=== PATIENT | female | born 1985 | race African-American/Black ===

== ENCOUNTER 2020-09-01 17:38 | Emergency (ER) | payer MEDICAID ==
[2020-09-01] MEDS ORDERED: Sodium Chloride 0.9% 10 ML Syringe FLUSH PRN (17:49)
[2020-09-01] MEDS ORDERED: Lactated Ringers 1,000 ML IV ONE (17:49)
[2020-09-01] MEDS ORDERED: Sodium Chloride 0.9% 2.5 ML Syringe FLUSH PRN (17:49)
--- NOTE | 2020-09-01 17:54 | EDM.PDOC ---
<Lux Curiel - Last Filed: 09/01/20 18:41> ED HPI GENERAL MEDICAL PROBLEM - General Chief Complaint: Chest Pain Stated Complaint: CHEST PAIN Time Seen by Provider: 09/01/20 17:39 - History of Present Illness INITIAL COMMENTS - FREE TEXT/NARRATIVE: 34-year-old female who denies any significant past medical history who is presenting with a substernal constant chest pressure that is associated with shortness of breath when she lays flat. Is been going on for the last few days. She feels like her breathing worsened this morning which is why she presents today. She denies cough she denies lightheadedness or dizziness no nausea or vomiting no abdominal pain. No radiation. She denies any exacerbating or alleviating factors the pain is not changed by food it is not changed by exertion. She denies being out of the heat for any significant amount of time. She is a smoker. She states she has occasional trouble breathing with the heat but it is only occasional she has no diagnosis of chronic lung disease. She denies lower extremity pain or swelling. chest Pain Score (Numeric/FACES): 10 - Related Data Allergies Allergy/AdvReac Type Severity Reaction Status Date / Time diphenhydramine Allergy Hives Verified 09/01/20 17:49 [From Benadryl] ibuprofen Allergy Hives Verified 09/01/20 17:49 tramadol Allergy Hives Verified 09/01/20 17:49 Home Meds: Home Meds . [No Known Home Meds] 09/01/20 [History] ED ROS GENERAL - Review of Systems Review Of Systems: See Below Free Text/Narrative/Comment: General: No fever. Skin: No rash. Eyes: No vision problems. ENT: No sore throat. Neck: No neck stiffness. Respiratory: Per HPI Cardiac: Per HPI Gastrointestinal: No nausea, vomiting or abdominal pain. Musculoskeletal: No myalgias/arthralgias. Neurologic: No headache. ED EXAM, GENERAL - Physical Exam Exam: See Below Free Text/Narrative:: General Appearance: No acute distress, appears comfortable Skin: No rash HEENT: Normocephalic/atraumatic, sclera anicteric, mucous membranes dry Neck: Normal range of motion Chest and Lungs: Bilateral breath sounds, clear to auscultation Cardiovascular: Tachycardic rate regular rhythm intact distal perfusion, no murmur Abdomen: Soft, non-tender Back: Normal Musculoskeletal: No edema or tenderness Neurologic: Awake, alert, no obvious deficits, moving all extremities Psychiatric: Appropriate, cooperative ED GENERAL MEDICAL PROCEDURES - Additional/Other Procedure(s) Other (Free Text) Procedure(s): Peripheral IV Insertion: Consent obtained and procedural pause performed. Arm was cleansed with chlorhexidine. US was used to identify an appropriate vein in the right medial upper arm and a long [id number] catheter was inserted into the vein under dynamic ultrasound guidance. The IV was secured in the usual fashion and adrien and flushed well. The patient tolerated the procedure well with no complications. Karlos Curiel MD #1 Interpretation EKG Date: 09/01/20 Time: 17:52 EKG Interpretation Comments: Obtained at 1751 sinus tachycardia rate of [address]-T wave changes no clear acute ischemia normal intervals Departure - Departure Disposition: Home, Self-Care 01 Clinical Impression: Microcytic anemia, Nonspecific chest pain Iron deficiency anemia Qualifiers: Iron deficiency anemia type: unspecified iron deficiency Qualified Code(s): D50.9 - Iron deficiency anemia, unspecified - Discharge Information Instructions: Nonspecific Chest Pain, Adult, Preventing Iron Deficiency Anemia, Adult, Iron-Rich Diet Forms: ED Department Discharge Additional Instructions: You were seen and evaluated in the ER today secondary to symptoms of chest discomfort and shortness of breath. Your blood tests in the ER are all normal a nd did not point towards a serious heart or lung issue. Your hemoglobin is low as we discussed and you should initiate therapy with multivitamins with iron to assist you. Please make an appointment to see your family doctor next week for reevaluation. The following information is given to patients seen in the emergency department who are being discharged to home. This information is to outline your options for follow-up care. We provide all patients seen in our emergency department with a follow-up referral. The need for follow-up, as well as the timing and circumstances, are variable depending upon the specifics of your emergency department visit. If you don't have a primary care physician on staff, we will provide you with a referral. We always advise you to contact your personal physician following an emergency department visit to inform them of the circumstance of the visit and for follow-up with them and/or the need for any referrals to a consulting specialist. The emergency department will also refer you to a specialist when appropriate. This referral assures that you have the opportunity for follow-up care with a specialist. All of these measure are taken in an effort to provide you with optimal care, which includes your follow-up. Under all circumstances we always encourage you to contact your private physician who remains a resource for coordinating your care. When calling for follow-up care, please make the office aware that this follow-up is from your recent emergency room visit. If for any reason you are refused follow-up, please contact the [facility] Emergency Department at and asked to speak to the emergency department charge nurse. [facility] [address] [place] [id number] [facility] [address] [place] [id number] Sepsis Event Note (ED) - Evaluation Sepsis Screening Result: No Definite Risk - Assessment/Plan Assessment:: 34-year-old female presenting with chest heaviness and shortness of breath. At her age ACS would be unlikely but troponin pending. Patient has had constant symptoms for multiple days so single troponin should be sufficient. Patient's heart score is low. PE certainly needs to be considered given her tachycardia and shortness of breath D-dimer will be sent. IV fluids were given for tachycardia for now. Patient has no prior history of heart failure no crackles on exam but new heart failure is a consideration as well and BNP is pending. Additional evaluation and final disposition pending results of initial treatment evaluation. 1841: There was a significant delay in obtaining the patient's labs due to a difficult IV start. I was able to place a long IV in the right upper arm and labs were obtained. Labs are pending at this time and results and final disposition have been signed out to Dr. Strauss. <Larry Strauss - Last Filed: 09/01/20 20:03> ED HPI GENERAL MEDICAL PROBLEM - History of Present Illness INITIAL COMMENTS - FREE TEXT/NARRATIVE: 7:56 PM: Signout received by me at [address] Moisés. 34-year-old female who presents ER today with atypical chest pain. Patient's labs are all within normal limits. Patient has a normal troponin, BNP, D-dimer. Patient EKG is nondiagnostic. Patient's chest x-ray was normal. Patient appears comfortable in the ED and without complaints at this time. Patient vital signs are all within normal limits at this time her heart rate is 92, respiratory of 18. Blood pressures remained stable. Patient's only abnormal labs that are significant is a microcytic anemia with a hemoglobin of 7.7. I have discussed this with the patient. She reports that she usually goes through a box of pads each month with her periods and she reports that they are usually pretty heavy. She reports she is not currently taking any supplemental vitamins or iron. Have had a long discussion with the patient to follow-up with her doctor for further evaluation of her atypical pain and to start herself on multivitamins with iron/stool softeners in order to bring her hemoglobin higher. Patient currently is asymptomatic with regards to her anemia. I do not believe that her shortness of breath is secondary to the anemia because her BNP is normal and there is no evidence of high-output heart failure from it. I have addressed with the patient that increasing her hemoglobin with iron might improve her complaints of shortness of breath, generalized weakness and fatigue and she is agreed to do so. At this time, I feel that the patient is stable for discharge to home with continued close outpatient follow-up. Reassessment at the time of disposition demonstrates that the patient is in no acute distress. The patient has remained stable throughout the entire ED visit and is without objective evidence for acute process requiring urgent intervention or hospitalization. The patient is stable for discharge, counseling is provided as documented above, discussed symptomatic treatment and specific conditions for return. I have spoken with the patient/caregiver and discussed todays findings, in addition to providing specific details for the plan of care. Questions are answered and there is agreement with the plan. Course - Vital Signs Last Recorded V/S: Last Vital Signs Temp 98.2 F 09/01/20 18:56 Pulse 98 09/01/20 18:56 Resp 18 09/01/20 18:56 BP 109/65 09/01/20 18:56 Pulse Ox 98 09/01/20 18:56 - Orders/Labs/Meds Orders: Active Orders 24 hr Category Date Time Status EKG 12 Lead [EKG Documentation Completion] [RC] STAT Care 09/01/20 17:43 Active Sodium Chloride 0.9% [Saline Flush] Med 09/01/20 17:49 Active 10 ml FLUSH ASDIRECTED PRN Sodium Chloride 0.9% [Saline Flush] Med 09/01/20 17:49 Active 2.5 ml FLUSH ASDIRECTED PRN Saline Lock Insert [OM.PC] Stat Oth 09/01/20 17:49 Ordered Medication Orders Sodium Chloride (Sodium Chloride 0.9% 10 Ml Syringe) 10 ml FLUSH ASDIRECTED PRN PRN Reason: Keep Vein Open Last Admin: 09/01/20 18:47 Dose: 10 ml Documented by: LIZA Sodium Chloride (Sodium Chloride 0.9% 2.5 Ml Syringe) 2.5 ml FLUSH ASDIRECTED PRN PRN Reason: Keep Vein Open Last Admin: 09/01/20 18:48 Dose: 2.5 ml Documented by: LIZA Labs: Laboratory Tests 09/01/20 09/01/20 09/01/20 Range/Units 18:43 18:43 18:43 WBC 8.78 (4.0-11.0) K/uL RBC 3.72 L (4.30-5.90) M/uL Hgb 7.7 L (12.0-16.0) g/dL Hct 26.6 L (36.0-46.0) % MCV 71.5 L (80.0-98.0) fL MCH 20.7 L (27.0-32.0) pg MCHC 28.9 L (31.0-37.0) g/dL RDW Std Deviation 50.7 (28.0-62.0) fl RDW Coeff of Nreis 19 H (11.0-15.0) % Plt Count 516 H (150-400) K/uL MPV 9.40 (7.40-12.00) fL Neut % (Auto) 67.1 (48.0-80.0) % Lymph % (Auto) 23.8 (16.0-40.0) % [place] % (Auto) 8.7 (0.0-15.0) % Eos % (Auto) 0.3 (0.0-7.0) % Baso % (Auto) 0.1 (0.0-1.5) % Neut # (Auto) 5.9 H (1.4-5.7) K/uL Lymph # (Auto) 2.1 (0.6-2.4) K/uL [place] # (Auto) 0.8 (0.0-0.8) K/uL Eos # (Auto) 0.0 (0.0-0.7) K/uL Baso # (Auto) 0.0 (0.0-0.1) K/uL Nucleated RBC % 0.0 /100WBC Nucleated RBCs # 0 K/uL D-Dimer, Quantitative 0.40 (0.0-0.50) mg/L FEU Sodium 139 (136-145) mmol/L Potassium 3.7 (3.5-5.1) mmol/L Chloride 103 (98-107) mmol/L Carbon Dioxide 25.4 (21.0-32.0) mmol/L BUN 9 (7.0-18.0) mg/dL Creatinine 0.7 (0.6-1.0) mg/dL Est Cr Clr Drug Dosing 103.82 mL/min Estimated GFR (MDRD) > 60.0 ml/min Glucose 85 (74-106) mg/dL Calcium 8.7 (8.5-10.1) mg/dL Magnesium 1.9 (1.8-2.4) mg/dL Total Bilirubin 0.3 (0.2-1.0) mg/dL AST 15 (15-37) IU/L ALT 9 L (14-63) IU/L Alkaline Phosphatase 65 (46-116) U/L Troponin I < 0.050 (0.000-0.056) ng/mL B-Natriuretic Peptide (<100) PG/ML Total Protein 8.3 H (6.4-8.2) g/dL Albumin 3.6 (3.4-5.0) g/dL Globulin 4.7 H (2.6-4.0) g/dL Albumin/Globulin Ratio 0.8 L (0.9-1.6) TSH 3rd Generation 0.94 (0.36-3.74) uIU/mL 09/01/20 Range/Units 18:43 WBC (4.0-11.0) K/uL RBC (4.30-5.90) M/uL Hgb (12.0-16.0) g/dL Hct (36.0-46.0) % MCV (80.0-98.0) fL MCH (27.0-32.0) pg MCHC (31.0-37.0) g/dL RDW Std Deviation (28.0-62.0) fl RDW Coeff of Neris (11.0-15.0) % Plt Count (150-400) K/uL MPV (7.40-12.00) fL Neut % (Auto) (48.0-80.0) % Lymph % (Auto) (16.0-40.0) % [place] % (Auto) (0.0-15.0) % Eos % (Auto) (0.0-7.0) % Baso % (Auto) (0.0-1.5) % Neut # (Auto) (1.4-5.7) K/uL Lymph # (Auto) (0.6-2.4) K/uL [place] # (Auto) (0.0-0.8) K/uL Eos # (Auto) (0.0-0.7) K/uL Baso # (Auto) (0.0-0.1) K/uL Nucleated RBC % /100WBC Nucleated RBCs # K/uL D-Dimer, Quantitative (0.0-0.50) mg/L FEU Sodium (136-145) mmol/L Potassium (3.5-5.1) mmol/L Chloride (98-107) mmol/L Carbon Dioxide (21.0-32.0) mmol/L BUN (7.0-18.0) mg/dL Creatinine (0.6-1.0) mg/dL Est Cr Clr Drug Dosing mL/min Estimated GFR (MDRD) ml/min Glucose (74-106) mg/dL Calcium (8.5-10.1) mg/dL Magnesium (1.8-2.4) mg/dL Total Bilirubin (0.2-1.0) mg/dL AST (15-37) IU/L ALT (14-63) IU/L Alkaline Phosphatase (46-116) U/L Troponin I (0.000-0.056) ng/mL B-Natriuretic Peptide 13 (<100) PG/ML Total Protein (6.4-8.2) g/dL Albumin (3.4-5.0) g/dL Globulin (2.6-4.0) g/dL Albumin/Globulin Ratio (0.9-1.6) TSH 3rd Generation (0.36-3.74) uIU/mL Meds: Medications Generic Name Dose Route Start Last Admin Trade Name Freq PRN Reason Stop Dose Admin Sodium Chloride 10 ml 09/01/20 17:49 09/01/20 18:47 Sodium Chloride 0.9% 10 Ml Syringe FLUSH 10 ml ASDIRECTED PRN Administration Keep Vein Open Sodium Chloride 2.5 ml 09/01/20 17:49 09/01/20 18:48 Sodium Chloride 0.9% 2.5 Ml Syringe FLUSH 2.5 ml ASDIRECTED PRN Administration Keep Vein Open Discontinued Medications Generic Name Dose Route Start Last Admin Trade Name Freq PRN Reason Stop Dose Admin Lactated Ringer's 1,000 mls @ 999 mls/hr 09/01/20 17:49 09/01/20 18:47 Ringers, Lactated IV 09/01/20 18:49 999 mls/hr .BOLUS ONE Administration Departure - Departure Time of Disposition: 19:58 Condition: Good Sepsis Event Note (ED) - Focused Exam Vital Signs: Vital Signs Temp Pulse Resp BP Pulse Ox 09/01/20 18:56 98.2 F 98 18 109/65 98 09/01/20 18:00 98.0 F 82 18 112/72 98 09/01/20 17:45 98.4 F 120 H 101/71 100
--- NOTE | 2020-09-01 18:44 | CR ---
INDICATION: Chest pain for 3 days. TECHNIQUE: Chest 1 view. COMPARISON: None. FINDINGS: No focal consolidation, pleural effusion, or pneumothorax. Normal heart size and pulmonary vascularity. The bones are unremarkable. Surgical clips right upper quadrant. IMPRESSION: No acute cardiopulmonary findings. Dictated by Quiaan Crews MD @ 09/01/2020 6:43:[address] Quiana Crews @ Sep 01 2020 6:43PM
[2020-09-01 19:13] LABS: BLOOD UREA NITROGEN,BUN 9 mg/dL (7.0-18.0); CARBON DIOXIDE,CO2 25.4 mmol/L (21.0-32.0); CHLORIDE,CL 103 mmol/L (98-107); GLUCOSE RANDOM 85 mg/dL (74-106); POTASSIUM,K 3.7 mmol/L (3.5-5.1); SODIUM,NA 139 mmol/L (136-145)
== END 2020-09-01 20:15 | disposition home or self-care (01) ==
LOC: MW.ED 17:38
DX: R07.2 Precordial pain (principal); R07.89 Other chest pain; D50.9 Iron deficiency anemia, unspecified; Z88.5 Allergy status to narcotic agent; Z88.6 Allergy status to analgesic agent; Z88.8 Allergy status to other drugs, medicaments and biological substances
CPT/HCPCS: 36415; 36569; 71045; 80053; 83735; 83880; 84443; 84484; 85025; 85379; 93005; 99285; J7120; 93010; 99284

== ENCOUNTER 2021-01-25 10:22 | Emergency (ER) | payer MEDICAID ==
--- NOTE | 2021-01-25 10:35 | EDM.PDOC ---
ED HPI GENERAL MEDICAL PROBLEM - General Chief Complaint: Back Pain or Injury Stated Complaint: ABDOMINAL PAIN/POS TEST Time Seen by Provider: 01/25/21 10:33 Source of Information: Reports: Patient History Limitations: Reports: No Limitations - History of Present Illness INITIAL COMMENTS - FREE TEXT/NARRATIVE: HISTORY AND PHYSICAL: History of present illness: The patient is a 35-year-old male who presents to the emergency department with complaints of epigastric and lower abdominal pain that started last night. Patient states that her last period was January 03 that lasted 3 days. She states that she took a positive test 2 weeks ago. The patient has not been taking any medication for the pain. The patient states that she has never had pain like this previously. The patient denies any vaginal bleeding. The patient denies any vaginal discharge of any kind. The patient states the pain is not associated with intercourse. Patient denies any fever, chills, headache, change in vision, syncope or near syncope. Denies any chest pain, back pain, shortness of breath or cough. Denies any abdominal pain, nausea, vomiting, diarrhea, constipation or dysuria. Has not noted any blood in urine or stool. Patient has been eating and drinking appropriately. Review of systems: As per history of present illness and below otherwise all systems reviewed and negative. Past medical history: As per history of present illness and as reviewed below otherwise noncontributory. Surgical history: As per history of present illness and as reviewed below otherwise noncontributory. Social history: See social history for further information Family history: As per history of present illness and as reviewed below otherwise noncontributory. Physical exam: General: Well developed and well nourished. Alert and orientated x 3. Nontoxic in appearance and in no acute distress. Vital signs are stable and have been reviewed by me. Nursing notes were reviewed. HEENT: Atraumatic, normocephalic, pupils equal and reactive bilaterally, negative for conjunctival pallor or scleral icterus, mucous membranes moist, TMs normal bilaterally, throat clear, neck supple, nontender, trachea midline. No drooling or trismus noted. No meningeal signs. No hot potato voice noted. Lungs: Clear to auscultation bilaterally. No wheezes, rales, or rhonchi. Chest nontender. Normal work of breathing, no accessory muscles used. Heart: S1S2, regular rate and rhythm without overt murmur, gallops, or rubs. No JVD. No peripheral edema Abdomen: Soft, nondistended, no epigastric tenderness, lower mid abdominal tenderness. Normoactive bowel sounds. Negative for masses or costovertebral tenderness. Skin: Intact, warm, dry. No lesions or rashes noted. Hematologic: No petechiae or purpra. Mucosa appropriate color and normal nail bed color and refill. Extremities: Atraumatic, moves all extremities per self without difficulty or deficits, negative for cords or calf pain. Neurovascular unremarkable. Neuro: Awake, alert, oriented. Cranial nerves II through XII unremarkable. Cerebellum unremarkable. Motor and sensory unremarkable throughout. Exam nonfocal. Psychiatric: Mood and affect are appropriate. Normal thought process. Answering questions appropriately. Notes: *This patient was seen and evaluated during the 2019 SARS-CoV-2 novel coronavirus pandemic period. Community viral transmission is ongoing at time of this encounter and the emergency department is operating under pandemic response procedures. As stated above the patient is a 35-year-old female who presents to the emergency department complaining of epigastric and lower abdominal pain that started last night. The patient took a positive test about 2 weeks ago. The patient had has no diarrhea, no urinary symptoms and no nausea vomiting. She is eating and drinking without difficulty. The patient has had 2 previous pregnancies to full-term without any difficulty.The patient's vital signs are stable. I will order a CBC, CMP, quantitative hCG, and a urinalysis. The patient is agreeable with this plan. The patient's CBC is significant for the hemoglobin of 8.4. In August of this year the patient's hemoglobin was 7.7 and was instructed to increase dietary iron. The patient has done this I have advised her to follow-up with her primary care. The patient's hCG quantitative was less than 1.0 and the patient's urine was negative. The patient's urinalysis was positive for trichomonas. I have ordered metronidazole 500 mg p.o. twice daily for 7 days to treat the trichomonas. I discussed the findings with the patient and informed her of the trichomonas. I informed her that her partner also needed to be tested and that she should refrain from intercourse until she has completed the medication. I informed the patient that her other test most likely was a false positive. The patient verbalized understanding and stated that she would talk to her partner and complete the medication. The patient is agreeable with this discharge plan. I have talked with the patient about today's findings, in addition to providing specific details for plan of care. Reassessment at the time of disposition demonstrates that the patient is in no acute distress. The patient is stable for discharge, counseling was provided and we discussed in great detail signs and symptoms that would prompt them to return to the Emergency Department. Medication, follow up and supportive care measures were reviewed and discussed. Voices understanding and is agreeable to plan of care. Denies any further questions or concerns at this time. Diagnostics: BC, CMP, monitor urine hCG, urinalysis Prescription:metronidazole 500 mg mouth twice a day for 7 days Impression: Abdominal pain, trichomonas, anemia chronic Plan: 1. You were evaluated today on an emergent basis. Your complaints of abdominal pain was evaluated with blood work and an exam. Your urine was negative and your blood test was also negative. You most likely had a false positive test 2 weeks ago. Your urine did come back positive for trichomonas and I have prescribed you metronidazole 500 mg mouth twice a day for 7 days which [facility] You must take this medicine and completed. You should also let your partner know of the trichomonas and they should be treated to. You should not have intercourse until after you both are treated. 2. You can alternate Tylenol and ibuprofen as needed for pain and fever management. 3. We encourage you to follow up with your primary care provider and/or recommended specialist in the next few days for re-evaluation and further care/management. 4. If your symptoms should worsen, new symptoms develop or any of the signs and symptoms we discussed should arise please return to the emergency room or call 911 (if needed). Definitive disposition and diagnosis as appropriate pending reevaluation and re view of above. Abdomen Pain Score (Numeric/FACES): 8 - Related Data Allergies Allergy/AdvReac Type Severity Reaction Status Date / Time diphenhydramine Allergy Hives Verified 01/25/21 10:39 [From Benadryl] ibuprofen Allergy Hives Verified 01/25/21 10:39 tramadol Allergy Hives Verified 01/25/21 10:39 Home Meds: Home Meds metroNIDAZOLE [Metronidazole] 500 mg PO BID 7 Days #14 tablet 01/25/21 [Rx] Past Medical History - Past Health History Medical/Surgical History: Denies Medical/Surgical History ED ROS GENERAL - Review of Systems Review Of Systems: Comprehensive ROS is negative, except as noted in HPI. ED EXAM, GENERAL - Physical Exam Exam: See Below (See dictation) Course - Vital Signs Last Recorded V/S: Last Vital Signs Temp 98 F 01/25/21 11:52 Pulse 84 01/25/21 11:52 Resp 16 01/25/21 11:52 BP 137/93 H 01/25/21 11:52 Pulse Ox 100 01/25/21 11:52 - Orders/Labs/Meds Orders: Active Orders 24 hr Category Date Time Status Sodium Chloride 0.9% [Saline Flush] Med 01/25/21 10:56 Active 10 ml FLUSH ASDIRECTED PRN Sodium Chloride 0.9% [Saline Flush] Med 01/25/21 10:56 Active 2.5 ml FLUSH ASDIRECTED PRN Saline Lock Insert [OM.PC] Stat Oth 01/25/21 10:56 Ordered Medication Orders Sodium Chloride (Sodium Chloride 0.9% 10 Ml Syringe) 10 ml FLUSH ASDIRECTED PRN PRN Reason: Keep Vein Open Sodium Chloride (Sodium Chloride 0.9% 2.5 Ml Syringe) 2.5 ml FLUSH ASDIRECTED PRN PRN Reason: Keep Vein Open Labs: Laboratory Tests 01/25/21 01/25/21 01/25/21 Range/Units 11:35 11:35 12:05 WBC 6.73 (4.0-11.0) K/uL RBC 3.96 L (4.30-5.90) M/uL Hgb 8.4 L (12.0-16.0) g/dL Hct 29.0 L (36.0-46.0) % MCV 73.2 L (80.0-98.0) fL MCH 21.2 L (27.0-32.0) pg MCHC 29.0 L (31.0-37.0) g/dL RDW Std Deviation 51.0 (28.0-62.0) fl RDW Coeff of Neris 19 H (11.0-15.0) % Plt Count 306 (150-400) K/uL MPV 9.20 (7.40-12.00) fL Neut % (Auto) 70.4 (48.0-80.0) % Lymph % (Auto) 20.4 (16.0-40.0) % [place] % (Auto) 8.8 (0.0-15.0) % Eos % (Auto) 0.3 (0.0-7.0) % Baso % (Auto) 0.1 (0.0-1.5) % Neut # (Auto) 4.7 (1.4-5.7) K/uL Lymph # (Auto) 1.4 (0.6-2.4) K/uL [place] # (Auto) 0.6 (0.0-0.8) K/uL Eos # (Auto) 0.0 (0.0-0.7) K/uL Baso # (Auto) 0.0 (0.0-0.1) K/uL Nucleated RBC % 0.0 /100WBC Nucleated RBCs # 0 K/uL Sodium (136-145) mmol/L Potassium (3.5-5.1) mmol/L Chloride (98-107) mmol/L Carbon Dioxide (21.0-32.0) mmol/L BUN (7.0-18.0) mg/dL Creatinine (0.6-1.0) mg/dL Est Cr Clr Drug Dosing mL/min Estimated GFR (MDRD) ml/min Glucose (74-106) mg/dL Calcium (8.5-10.1) mg/dL Total Bilirubin (0.2-1.0) mg/dL AST (15-37) IU/L ALT (14-63) IU/L Alkaline Phosphatase (46-116) U/L Total Protein (6.4-8.2) g/dL Albumin (3.4-5.0) g/dL Globulin (2.6-4.0) g/dL Albumin/Globulin Ratio (0.9-1.6) HCG, Quant mIU/mL Urine Color YELLOW Urine Appearance SLT CLOUDY Urine pH 6.0 (5.0-8.0) Ur Specific [place] 1.020 (1.001-1.035) Urine Protein NEGATIVE (NEGATIVE) mg/dL Urine Glucose (UA) NEGATIVE (NEGATIVE) mg/dL Urine Ketones NEGATIVE (NEGATIVE) mg/dL Urine Occult Blood NEGATIVE (NEGATIVE) Urine Nitrite NEGATIVE (NEGATIVE) Urine Bilirubin NEGATIVE (NEGATIVE) Urine Urobilinogen 0.2 (<2.0) EU/dL Ur Leukocyte Esterase SMALL H (NEGATIVE) Urine RBC 0-1 (0-2/HPF) Urine WBC 0-2 (0-5/HPF) Ur Epithelial Cells FEW (NONE-FEW) Urine Bacteria FEW (NEGATIVE) Urine Trichomonas PRESENT (NEGATIVE) Urine HCG, Qual NEGATIVE (NEGATIVE) 01/25/21 Range/Units 12:05 WBC (4.0-11.0) K/uL RBC (4.30-5.90) M/uL Hgb (12.0-16.0) g/dL Hct (36.0-46.0) % MCV (80.0-98.0) fL MCH (27.0-32.0) pg MCHC (31.0-37.0) g/dL RDW Std Deviation (28.0-62.0) fl RDW Coeff of Neris (11.0-15.0) % Plt Count (150-400) K/uL MPV (7.40-12.00) fL Neut % (Auto) (48.0-80.0) % Lymph % (Auto) (16.0-40.0) % [place] % (Auto) (0.0-15.0) % Eos % (Auto) (0.0-7.0) % Baso % (Auto) (0.0-1.5) % Neut # (Auto) (1.4-5.7) K/uL Lymph # (Auto) (0.6-2.4) K/uL [place] # (Auto) (0.0-0.8) K/uL Eos # (Auto) (0.0-0.7) K/uL Baso # (Auto) (0.0-0.1) K/uL Nucleated RBC % /100WBC Nucleated RBCs # K/uL Sodium 141 (136-145) mmol/L Potassium 3.7 (3.5-5.1) mmol/L Chloride 104 (98-107) mmol/L Carbon Dioxide 24.1 (21.0-32.0) mmol/L BUN 10 (7.0-18.0) mg/dL Creatinine 0.7 (0.6-1.0) mg/dL Est Cr Clr Drug Dosing 102.86 mL/min Estimated GFR (MDRD) > 60.0 ml/min Glucose 84 (74-106) mg/dL Calcium 9.0 (8.5-10.1) mg/dL Total Bilirubin 0.4 (0.2-1.0) mg/dL AST 12 L (15-37) IU/L ALT 11 L (14-63) IU/L Alkaline Phosphatase 55 (46-116) U/L Total Protein 8.7 H (6.4-8.2) g/dL Albumin 3.4 (3.4-5.0) g/dL Globulin 5.3 H (2.6-4.0) g/dL Albumin/Globulin Ratio 0.6 L (0.9-1.6) HCG, Quant < 1.0 mIU/mL Urine Color Urine Appearance Urine pH (5.0-8.0) Ur Specific [place] (1.001-1.035) Urine Protein (NEGATIVE) mg/dL Urine Glucose (UA) (NEGATIVE) mg/dL Urine Ketones (NEGATIVE) mg/dL Urine Occult Blood (NEGATIVE) Urine Nitrite (NEGATIVE) Urine Bilirubin (NEGATIVE) Urine Urobilinogen (<2.0) EU/dL Ur Leukocyte Esterase (NEGATIVE) Urine RBC (0-2/HPF) Urine WBC (0-5/HPF) Ur Epithelial Cells (NONE-FEW) Urine Bacteria (NEGATIVE) Urine Trichomonas (NEGATIVE) Urine HCG, Qual (NEGATIVE) Meds: Medications Generic Name Dose Route Start Last Admin Trade Name Freq PRN Reason Stop Dose Admin Sodium Chloride 10 ml 01/25/21 10:56 Sodium Chloride 0.9% 10 Ml Syringe FLUSH ASDIRECTED PRN Keep Vein Open Sodium Chloride 2.5 ml 01/25/21 10:56 Sodium Chloride 0.9% 2.5 Ml Syringe FLUSH ASDIRECTED PRN Keep Vein Open Departure - Departure Time of Disposition: 13:07 Disposition: Home, Self-Care 01 Condition: Good Clinical Impression: Trichomonas vaginitis, Chronic anemia Abdominal pain Qualifiers: Abdominal location: lower abdomen, unspecified Qualified Code(s): R10.30 - Lower abdominal pain, unspecified - Discharge Information Prescriptions: metroNIDAZOLE [Metronidazole] 500 mg PO BID 7 Days #14 tablet Instructions: Abdominal Pain, Adult, [id number], Trichomoniasis Referrals: PCP,None [Primary Care Provider] - Forms: ED Department Discharge Additional Instructions: The following information is given to patients seen in the emergency department who are being discharged to home. This information is to outline your options for follow-up care. We provide all patients seen in our emergency department with a follow-up referral. The need for follow-up, as well as the timing and circumstances, are variable depending upon the specifics of your emergency department visit. If you don't have a primary care physician on staff, we will provide you with a referral. We always advise you to contact your personal physician following an emergency department visit to inform them of the circumstance of the visit and for follow-up with them and/or the need for any referrals to a consulting specialist. The emergency department will also refer you to a specialist when appropriate. This referral assures that you have the opportunity for follow-up care with a specialist. All of these measure are taken in an effort to provide you with optimal care, which includes your follow-up. Under all circumstances we always encourage you to contact your private physician who remains a resource for coordinating your care. When calling for follow-up care, please make the office aware that this follow-up is from your recent emergency room visit. If for any reason you are refused follow-up, please contact the [facility] Emergency Department at and asked to speak to the emergency department charge nurse. [facility] - Primary Care [address] [place] [address] [place] [address] Plan: 1. You were evaluated today on an emergent basis. Your complaints of abdominal pain was evaluated with blood work and an exam. Your urine was negative and your blood test was also negative. You most likely had a false positive test 2 weeks ago. Your urine did come back positive for trichomonas and I have prescribed you metronidazole 500 mg mouth twice a day for 7 days which was [facility] to [facility]. You must take this medicine and completed. You should also let your partner know of the trichomonas and they should be treated to. You should not have intercourse until after you both are treated. 2. You can alternate Tylenol and ibuprofen as needed for pain and fever management. 3. We encourage you to follow up with your primary care provider and/or recommended specialist in the next few days for re-evaluation and further care/management. 4. If your symptoms should worsen, new symptoms develop or any of the signs and symptoms we discussed should arise please return to the emergency room or call 911 (if needed). Sepsis Event Note (ED) - Focused Exam Vital Signs: Vital Signs Temp Pulse Resp BP Pulse Ox 01/25/21 11:52 98 F 84 16 137/93 H 100 01/25/21 10:39 97.5 F 106 H 16 159/86 H 99 - My Orders Last 24 Hours: My Active Orders 01/25/21 10:56 Sodium Chloride 0.9% [Saline Flush] 10 ml FLUSH ASDIRECTED PRN Sodium Chloride 0.9% [Saline Flush] 2.5 ml FLUSH ASDIRECTED PRN Saline Lock Insert [OM.PC] Stat - Assessment/Plan Last 24 Hours: My Active Orders 01/25/21 10:56 Sodium Chloride 0.9% [Saline Flush] 10 ml FLUSH ASDIRECTED PRN Sodium Chloride 0.9% [Saline Flush] 2.5 ml FLUSH ASDIRECTED PRN Saline Lock Insert [OM.PC] Stat
[2021-01-25] MEDS ORDERED: Sodium Chloride 0.9% 10 ML Syringe FLUSH PRN (10:56)
[2021-01-25] MEDS ORDERED: Sodium Chloride 0.9% 2.5 ML Syringe FLUSH PRN (10:56)
[2021-01-25 12:46] LABS: BLOOD UREA NITROGEN,BUN 10 mg/dL (7.0-18.0); CARBON DIOXIDE,CO2 24.1 mmol/L (21.0-32.0); CHLORIDE,CL 104 mmol/L (98-107); GLUCOSE RANDOM 84 mg/dL (74-106); POTASSIUM,K 3.7 mmol/L (3.5-5.1); SODIUM,NA 141 mmol/L (136-145)
== END 2021-01-25 13:32 | disposition home or self-care (01) ==
LOC: MW.ED 10:22
DX: A59.01 Trichomonal vulvovaginitis (principal); D64.9 Anemia, unspecified; Z88.6 Allergy status to analgesic agent; Z88.5 Allergy status to narcotic agent
CPT/HCPCS: 36415; 80053; 81001; 81025; 84702; 85025; 99284

== ENCOUNTER 2021-07-09 22:27 | Emergency (ER) | payer MEDICAID ==
[2021-07-09] MEDS ORDERED: Acetaminophen/HYDROcodone 325-5 MG Tab PO ONE (23:17)
[2021-07-09] MEDS ORDERED: predniSONE 20 MG Tab PO ONE (23:55)
== END 2021-07-10 00:28 | disposition home or self-care (01) ==
LOC: MW.ED 22:27
DX: G56.01 Carpal tunnel syndrome, right upper limb (principal); E66.9 Obesity, unspecified; Z88.5 Allergy status to narcotic agent; Z88.8 Allergy status to other drugs, medicaments and biological substances; Z68.32 Body mass index [BMI] 32.0-32.9, adult
CPT/HCPCS: 73110-26-RT; 73110-RT; 73130-26-RT; 73130-RT; 99283-25; A9270-GY

== ENCOUNTER 2021-07-14 12:56 | Emergency (ER) | payer MEDICAID ==
[2021-07-14] MEDS ORDERED: Acetaminophen 325 MG Tab PO ONE (14:14)
== END 2021-07-14 14:36 | disposition home or self-care (01) ==
LOC: MW.ED 12:56
DX: G56.01 Carpal tunnel syndrome, right upper limb (principal); E66.9 Obesity, unspecified; Z68.28 Body mass index [BMI] 28.0-28.9, adult; Z90.49 Acquired absence of other specified parts of digestive tract; Z88.8 Allergy status to other drugs, medicaments and biological substances; Z88.6 Allergy status to analgesic agent; Z88.5 Allergy status to narcotic agent
CPT/HCPCS: 99283; A9270

== ENCOUNTER 2022-01-06 22:41 | Emergency (ER) | payer MEDICAID ==
[2022-01-06] MEDS ORDERED: Dexamethasone 10 MG/ML SDV IVPUSH ONE (23:05)
[2022-01-06 23:50] LABS: CARBON DIOXIDE,CO2 26.3 mmol/L (21.0-32.0); POTASSIUM,K 3.3 mmol/L (3.5-5.1)
[2022-01-07 00:02] LABS: CORONAVIRUS COVID-19 NAA NEGATIVE (NEGATIVE); INFLUENZA A NAA NEGATIVE (NEGATIVE); INFLUENZA B NAA NEGATIVE (NEGATIVE); RESPIRATORY SYNCYTIAL VIR NAA NEGATIVE (NEGATIVE)
== END 2022-01-07 02:20 | disposition home or self-care (01) ==
LOC: MW.ED 22:41
DX: J40 Bronchitis, not specified as acute or chronic (principal); F17.200 Nicotine dependence, unspecified, uncomplicated; E66.9 Obesity, unspecified; Z68.31 Body mass index [BMI] 31.0-31.9, adult; Z88.8 Allergy status to other drugs, medicaments and biological substances; Z88.6 Allergy status to analgesic agent; Z88.5 Allergy status to narcotic agent; Z20.822 Contact with and (suspected) exposure to COVID-19
CPT/HCPCS: 0241U; 36415; 71046; 80053; 80307; 83880; 84484; 85025; 93005; 96374; 99285; J1100

== ENCOUNTER 2022-01-23 17:58 | Emergency (ER) | payer MEDICAID ==
[2022-01-23] MEDS ORDERED: Ketorolac 60 MG/2 ML SDV IM ONE (18:35)
== END 2022-01-23 20:26 | disposition home or self-care (01) ==
LOC: MW.ED 17:58
DX: M25.562 Pain in left knee (principal); E66.9 Obesity, unspecified; Z88.8 Allergy status to other drugs, medicaments and biological substances
CPT/HCPCS: 73560; 99283; J1885

== ENCOUNTER 2024-03-05 22:50 | Emergency (ER) | payer SELFPAY ==
[2024-03-05] MEDS: Fluorescein 1 MG Ophth Strip EYEBOTH ONE (23:23)
[2024-03-05] MEDS: Tetracaine HCl/PF 0.5% 4 ML Bottle EYEBOTH ONE (23:23)
[2024-03-06] MEDS ORDERED: Sodium Chloride 0.9% 10 ML Syringe FLUSH PRN (01:03)
[2024-03-06] MEDS: Dexamethasone 4 MG/ML SDV IVPUSH ONE (01:20)
[2024-03-06] MEDS: SUMAtriptan 6 MG/0.5 ML SDV SUBCUT ONE (01:20)
[2024-03-06] MEDS: Acetaminophen 500 MG Tab PO ONE (01:21)
[2024-03-06] MEDS: Ondansetron 4 MG Tab.DIS PO ONE (01:44)
== END 2024-03-06 03:20 | disposition home or self-care (01) ==
LOC: MW.ED 22:50
DX: G44.009 Cluster headache syndrome, unspecified, not intractable (principal); H57.11 Ocular pain, right eye; E66.9 Obesity, unspecified; Z86.69 Personal history of other diseases of the nervous system and sense organs; Z97.3 Presence of spectacles and contact lenses; Z90.49 Acquired absence of other specified parts of digestive tract; Z79.899 Other long term (current) drug therapy; Z88.5 Allergy status to narcotic agent; Z88.6 Allergy status to analgesic agent; Z88.8 Allergy status to other drugs, medicaments and biological substances; Z68.30 Body mass index [BMI] 30.0-30.9, adult
CPT/HCPCS: 70450; 96372; 96374; 99284; A9270; J1100; J3030; J3490

== ENCOUNTER 2024-08-20 01:51 | Emergency (ER) | payer MEDICAID ==
[2024-08-20] MEDS: Lidocaine 4% Patch TOP ONE (02:15)
== END 2024-08-20 02:46 | disposition home or self-care (01) ==
LOC: MW.ED 01:51
DX: N93.9 Abnormal uterine and vaginal bleeding, unspecified (principal); M54.50 Low back pain, unspecified; E66.9 Obesity, unspecified; Z88.8 Allergy status to other drugs, medicaments and biological substances; Z90.49 Acquired absence of other specified parts of digestive tract; Z68.37 Body mass index [BMI] 37.0-37.9, adult
CPT/HCPCS: 81025; 96372; 99284; A9270; J1100; 99283